=== PATIENT | female | born 1995 | race Caucasian/White ===

== ENCOUNTER 2017-07-26 17:47 | Outpatient (CLI) | payer BC ==
[~2017-07-26] VITALS: Ht 144.8 cm; Wt 69.9 kg
[2017-07-26 18:42] VITALS: Ht 144.8 cm; Wt 69.9 kg
[2017-07-26 18:43] VITALS: BP 128/89; PULSE 115; RESP 18
[2017-07-26 19:35] LABS: BASOPHILS % 0.3 % (0.0-2.0); EOSINOPHILS % 0.4 % (0.0-7.0); HEMATOCRIT 35.8 % (37.0-47.0); HEMOGLOBIN 12.5 g/dl (12.0-16.0); LYMPHOCYTES # 1.7 10^3/ul (0.8-2.9); LYMPHOCYTES % 23.6 % (15.0-51.0); MEAN CORPUSCULAR HEMOGLOBIN 30.9 pg (29.0-33.0); MEAN CORPUSCULAR HGB CONC 34.9 g/dl (32.0-37.0); MEAN CORPUSCULAR VOLUME 88.6 fl (82.0-101.0); MEAN PLATELET VOLUME 11.1 fl (7.4-10.4); MONOCYTE # 0.4 10^3/ul (0.3-0.9); MONOCYTES % 5.8 % (0.0-11.0); NEUTROPHIL # 5.1 10^3/ul (1.6-7.5); NEUTROPHILS % 69.4 % (39.0-77.0); PLATELET COUNT 196 10^3/UL (140-415); RED BLOOD COUNT 4.04 10^6/ul (4.20-5.40); RED CELL DISTRIBUTION WIDTH 12.9 % (11.5-14.5); WHITE BLOOD COUNT 7.3 10^3/ul (4.8-10.8)
[2017-07-26 20:02] LABS: ADD UMIC YES; ALBUMIN 3.4 g/dl (3.3-4.9); ALBUMIN/GLOBULIN RATIO 1.17; BILIRUBIN,INDIRECT 0.2 mg/dl (0-1.1); BILIRUBIN,TOTAL 0.2 mg/dl (0.2-1.3); CALCIUM 9.5 mg/dl (8.4-10.2); CREATININE 0.67 mg/dl (0.44-1.00); POTASSIUM 3.4 mmol/L (3.5-5.1); TOTAL PROTEIN 6.3 g/dl (6.1-8.1); UR ASCORBIC ACID NEGATIVE (NEGATIVE); UR BILIRUBIN (Dip) NEGATIVE (NEGATIVE); UR BLOOD (Dip) NEGATIVE (NEGATIVE); UR CLARITY CLEAR (CLEAR); UR COLOR COLORLESS (YELLOW); UR GLUCOSE (Dip) NEGATIVE (NEGATIVE); UR KETONES (Dip) NEGATIVE (NEGATIVE); UR LEUKOCYTE ESTERASE (Dip) TRACE Leu/ul (NEGATIVE); UR NITRITE (Dip) NEGATIVE (NEGATIVE); UR RBC 0 /HPF (0-5); UR SPECIFIC GRAVITY (Dip) 1.001 (1.003-1.030); UR TOTAL PROTEIN (Dip) NEGATIVE (NEGATIVE); UR UROBILINOGEN (Dip) NEGATIVE (NEGATIVE); URIC ACID 6.1 mg/dl (3.1-7.9)
[2017-07-26 20:08] LABS: INR 0.88; PT RATIO 0.9
[2017-07-26 20:09] LABS: PARTIAL THROMBOPLASTIN TIME 26.9 Sec (25.0-35.0)
--- NOTE | 2017-07-26 20:49 | PN ---
Triage Information Date/Time Jul 26, 2017 Reason for visit: High blood pressure Weeks of Gestation 36w 5d /Para 2/0 Diabetes: none Hypertention: induced Additional information 2nd trimester BP's were 99-112/61-76, 3rd trimester BP's were 116-124/77-83 until the one in clinic today which was 132/89.Pt denies headaches, visual changes, epigastric pain or lower or upper extremity swelling. She only reports some facial swelling over the course of the . PMHx: none. PSHx: foot surgery. NKDA. Objective Vital Signs Date Time Temp Pulse Resp B/P Pulse Ox O2 Delivery O2 Flow Rate FiO2 07/26/17 18:43 98.5 115 18 128/89 Room Air Heart Rate: 140's Heart Rate Comments Accels to 170 bpm. No decels. Contractions: 6-10 Minutes Apart Exam Deferred. Results/Medications Result Diagram: 07/26/17 1858 07/26/17 1915 Results 24 hrs Laboratory Tests Test 07/26/17 18:58 07/26/17 19:15 White Blood Count 7.3 Red Blood Count 4.04 L Hemoglobin 12.5 Hematocrit 35.8 L Mean Corpuscular Volume 88.6 Mean Corpuscular Hemoglobin 30.9 Mean Corpuscular Hemoglobin Concent 34.9 Red Cell Distribution Width 12.9 Platelet Count 196 Mean Platelet Volume 11.1 H Neutrophils % 69.4 Lymphocytes % 23.6 Monocytes % 5.8 Eosinophils % 0.4 Basophils % 0.3 Nucleated Red Blood Cells % 0.0 Neutrophils # 5.1 Lymphocytes # 1.7 Monocytes # 0.4 Eosinophils # 0.0 Basophils # 0.0 Nucleated Red Blood Cells # 0.0 Prothrombin Time 12.0 Prothrombin Time Ratio 0.9 INR International Normalized Ratio 0.88 Activated Partial Thromboplast Time 26.9 Fibrinogen 517.0 H Urine Color COLORLESS Urine Clarity CLEAR Urine pH 6.0 Urine Specific Serena 1.001 L Urine Ketones NEGATIVE Urine Nitrite NEGATIVE Urine Bilirubin NEGATIVE Urine Urobilinogen NEGATIVE Urine Leukocyte Esterase TRACE A Urine Microscopic RBC 0 Urine Microscopic WBC 0 Urine Hemoglobin NEGATIVE Urine Glucose NEGATIVE Urine Total Protein NEGATIVE Sodium Level 135 Potassium Level 3.4 L Chloride Level 102 Carbon Dioxide Level 24 Anion Gap 12 Blood Urea Nitrogen 7 Creatinine 0.67 Glucose Level 62 L Uric Acid 6.1 Calcium Level 9.5 Total Bilirubin 0.2 Direct Bilirubin 0.00 Indirect Bilirubin 0.2 Aspartate Amino Transf (AST/SGOT) 55 H Alanine Aminotransferase (ALT/SGPT) 53 Alkaline Phosphatase 253 H Total Protein 6.3 Albumin 3.4 Globulin 2.90 Albumin/Globulin Ratio 1.17 Amylase Level 65 Lipase 53 Disposition: Discharge Assessment/Plan A: IUP at 36w 5d. Mild PIH. P: 24 hour urine collection at home and pt to return with the specimen 12/30 AM for a repeat NST, BP check, and repeat PIH labs. Reviewed PIH precautions. ROBLES FARNSWORTH MD Jul 26, 2017 20:45
--- NOTE | 2017-07-26 21:22 | TRIAGE ---
OB Triage Datetime Report Generated by CPN: 07/26/2017 21:22 Datetime: 07/26/2017 19:20 Labor Evaluation Frequency: 2-6 Monitor Mode: External Duration (sec)2399: 60-100 Quality: Mild Pattern: Normal: <= 5 Contractions in 10 Minutes Resting Tone Bowring: Relaxed Heart Rate FHR Baseline Rate: 150 Monitor Mode: External US FHR Baseline Changes: No Baseline Change Variability: Moderate 6-25 bpm Accelerations: 15X15 Decelerations: None Category: Category I Pain Assessment Pain Presence: None/Denies Pain Type: N/A Datetime: 07/26/2017 18:39 Assessment Type: Triage Maternal Assessment Level of Consciousness: Fully Conscious DTR's/Clonus: DTRs 2+; No Clonus Headache: Denies Blurred Vision: No Respiratory Effort: Unlabored; Regular Rhythm; Equal Expansion Breath Sounds, Left: Clear and Equal Breath Sounds, Right: Clear and Equal Nausea/Vomiting: Denies RUQ Epigastric Pain: Denies Lower Extremities Edema: None Degree: None Upper Extremities Edema: None Degree: None Facial Edema: None Fall Risk Assessment History of Falling: (0) No Secondary Diagnosis: (0) No Ambulatory Aid: (0) Bedrest/Nurse Assist IV Therapy: (0) No Gait: (0) Normal/Bedrest/Immobile Mental Status: (0) Oriented to Own Ability Fall Score: 0 Fall Risk Score Definition: No Risk: No action required Datetime: 07/26/2017 18:35 Time of Arrival: 07/26/2017 17:37 EGA: 36.5 Arrived By: Ambulatory Arrived From: Office Chief Complaint: HIGH BP IN CLINIC Movement: Present Contractions: Denies/Absent Rupture of Membranes: Denies Vaginal Bleeding: None Vaginal Discharge: Denies Recent Sexual Intercouse: Denies Abdominal Trauma: Not Applicable Patient Complaints: Other Initial Plan: VS, EFM, CBC, CMP, UA, URIC ACID Datetime: 07/26/2017 18:28 Monitor Mode: External Monitor Mode: External US Datetime: 07/26/2017 18:25 Stage of : OB Triage
== END 2017-07-26 20:49 | disposition home or self-care (01) ==
LOC: OBT 17:47 → L-D 18:15 → OBT 20:49
PROVIDERS: ATTEND Obstetrics & Gynecology
DX: O13.3 Gestational [pregnancy-induced] hypertension without significant proteinuria, third trimester (principal); Z3A.36 36 weeks gestation of pregnancy
CPT/HCPCS: 36415; 80053; 81001; 82150; 83690; 84560; 85025; 85384; 85610; 85730; Z7500; G0463

== ENCOUNTER 2017-07-28 09:45 | Outpatient (CLI) | END 2017-07-28 17:32 | disposition home or self-care (01) ==

== ENCOUNTER 2017-08-02 03:11 | Inpatient (IN) | END 2017-08-06 18:00 | disposition home or self-care (01) | DRG 775 ==